=== PATIENT | male | born 1995 | race Caucasian/White ===

== ENCOUNTER 2017-06-12 19:42 | Emergency (ER) | payer SELFPAY ==
[~2017-06-12] VITALS: Ht 172.7 cm; Wt 66.0 kg
[2017-06-12 19:53] VITALS: BP 125/73
[2017-06-12] MEDS ORDERED: LIDOCAINE 1%, 20ML SQ ONE (20:00)
[2017-06-12] MEDS ORDERED: AZITHROMYCIN 500 MG TABLET PO ONE (20:30)
[2017-06-12] MEDS ORDERED: CEFTRIAXONE 250 MG IM ONE (20:30)
[2017-06-12] MEDS ORDERED: CEFTRIAXONE 250 MG ONE (20:52)
[2017-06-12] MEDS ORDERED: AZITHROMYCIN 250 MG TABLET ONE (20:53)
== END 2017-06-12 21:11 | disposition home or self-care (01) ==
LOC: ED 20:00
DX: A74.9 Chlamydial infection, unspecified (principal); B35.6 Tinea cruris; Z20.2 Contact with and (suspected) exposure to infections with a predominantly sexual mode of transmission
CPT/HCPCS: 81001; 87491; 87591; 96372; 99284; J0696